=== PATIENT | female | born 1940 | race Hispanic/Latino ===

== ENCOUNTER 2023-04-19 15:48 | Emergency (ER) | payer BC, MEDICARE ==
[~2023-04-19] VITALS: Ht 157.5 cm; Wt 75.7 kg
[2023-04-19 16:18] VITALS: BP 145/94; PULSE 90; RESP 18; TEMP 98.3; O2SAT 94
[2023-04-19 16:28] LABS: BILIRUBIN,URINE NEGATIVE (NEGATIVE); LEUKOCYTE ESTERASE ,URINE 1+ (NEGATIVE); NITRATE,URINE NEGATIVE (NEGATIVE); PH,URINE 5.5 (4.5-8.0)
[2023-04-19 16:29] LABS: APPEARANCE,URINE HAZY; UA COLOR YELLOW
== END 2023-04-19 17:40 | disposition home or self-care (01) ==
LOC: ER 15:48
DX: N39.0 Urinary tract infection, site not specified (principal); E11.9 Type 2 diabetes mellitus without complications; I10 Essential (primary) hypertension
CPT/HCPCS: 81001; 87086; 99283

== ENCOUNTER 2023-08-23 14:23 | Emergency (ER) | payer MEDICARE, BC ==
[~2023-08-23] VITALS: Ht 157.5 cm; Wt 75.7 kg
[2023-08-23 14:23] VITALS: BP 127/76; PULSE 87; RESP 18; TEMP 99; O2SAT 99
[2023-08-23 14:55] LABS: BILIRUBIN,URINE 1+ (NEGATIVE); LEUKOCYTE ESTERASE ,URINE 1+ (NEGATIVE); NITRATE,URINE NEGATIVE (NEGATIVE); PH,URINE 5.5 (4.5-8.0); UROBILINOGEN,URINE 0.2 E.U./dL (0.2)
[2023-08-23 14:58] LABS: APPEARANCE,URINE HAZY; UA COLOR YELLOW
[2023-08-23 15:16] LABS: YEAST,URINE RARE (NONE SEEN)
[2023-08-23] MEDS ORDERED: ROCEPHIN ONE (15:29)
[2023-08-23 15:33] VITALS: BP 129/70; PULSE 87; RESP 18; TEMP 99; O2SAT 99
[2023-08-23] MEDS: ROCEPHIN IM STA (15:33)
== END 2023-08-23 15:48 | disposition home or self-care (01) ==
LOC: ER 14:23
DX: N39.0 Urinary tract infection, site not specified (principal); E11.9 Type 2 diabetes mellitus without complications; I10 Essential (primary) hypertension; Z87.440 Personal history of urinary (tract) infections; Z90.710 Acquired absence of both cervix and uterus
CPT/HCPCS: 99284; 96372; 87086; 81001; J0696